=== PATIENT | female | born 1930 | race Caucasian/White ===

== ENCOUNTER 2017-12-25 13:13 | Day surgery (SDC) | payer OTHER, MEDICARE ==
--- NOTE | ~2017-12-25 | O ---
[facility] [place] [address] OPERATIVE REPORT Name: DAYNE DUDLEY Room #: 150-4 [facility] M.R.#: [id number] Admission: 12/25/17 Attend Phys: Nereida Guerra, Discharge: Date of : [birth year] Report #: [id number] THIS REPORT FOR: //name// CC: RAZIA MANUEL Physician staff Nereida Guerra DATE OF SERVICE: 12/25/2017 PREOPERATIVE DIAGNOSIS: Right index finger dorsal metacarpophalangeal joint dislocation, complex. POSTOPERATIVE DIAGNOSIS: Right index finger dorsal metacarpophalangeal joint dislocation, complex. PROCEDURE PERFORMED: Right index finger open reduction of metacarpophalangeal joint dislocation. SURGEON: Nereida Guerra MD ANESTHESIA: General mask anesthesia. ESTIMATED BLOOD LOSS: 1 mL. TOURNIQUET TIME: 13 minutes. COMPLICATIONS: None. CONDITION: Stable. DISPOSITION: Recovery room. INDICATIONS: The patient is an 87-year-old female with the above-mentioned diagnosis. She elects for operative treatment. The risks, benefits and alternatives of complications were discussed and included but were not limited to infection, damage to vessels or nerves, incomplete relief of her symptoms, and stiffness. Informed consent was obtained. The correct extremity was identified and labeled by myself. After verbal confirmation of patient as well as visual confirmation, a signed informed consent was obtained. DESCRIPTION OF PROCEDURE: The patient was brought back to the operative room, placed on the operating table in supine position. She received preoperative antibiotics. Tourniquet was placed over padding on the patient's right upper extremity. The right extremity was sterilely prepped and draped in usual fashion. Final timeout was taken to verify correct patient, operative [address] [address] OPERATIVE REPORT Name: DAYNE DUDLEY Room #: 150-4 [facility] M.R.#: [id number] Admission: 12/25/17 Attend Phys: Nereida Guerra, Discharge: Date of : [birth year] Report #: [id number] procedure, operative site, all concurred. The arm was elevated, exsanguinated, tourniquet inflated. Next, a closed reduction maneuver was attempted. I was unable to reduce the fracture and so then an oblique incision measuring approximately 1.5 cm was made from the proximal digital flexion crease to the proximal palmar crease. Dissection was carried down through subcutaneous tissue with tenotomy scissors. The radial digital nerve was directly beneath the skin, it was in excellent condition. Next, the A1 ramakrishna was easily identified. It was incised and then the joint was reduced after extricating the volar plate. The finger was taken through a range of motion, was felt to be very stable. It did not sublux. There was no significant instability noted. The wound was thoroughly irrigated. The skin was closed with 4-0 nylon suture. Wound was dressed with Adaptic and sterile gauze after infiltrating the subcutaneous tissue with approximately 2 mL of 0.25% Marcaine and she was placed in a bulky dressing and a volar and dorsal slab splint with the MP joint in approximately 30 degrees of flexion. All fingers were pink with brisk capillary refill. At the conclusion of the case and after deflation of the tourniquet, all sponge and needle counts were correct. The patient was transferred to postoperative recovery room in stable condition. By: [id number] Nereida Guerra MD /nt
== END 2017-12-25 17:20 | disposition home or self-care (01) ==
LOC: OR 13:13 → TBA 13:13 → OR 17:20
DX: S63.260A Dislocation of metacarpophalangeal joint of right index finger, initial encounter (principal); I10 Essential (primary) hypertension; M19.90 Unspecified osteoarthritis, unspecified site; I25.2 Old myocardial infarction; Z87.440 Personal history of urinary (tract) infections; Z79.899 Other long term (current) drug therapy; Z88.2 Allergy status to sulfonamides; X58.XXXA Exposure to other specified factors, initial encounter; Y93.9 Activity, unspecified; Y92.89 Other specified places as the place of occurrence of the external cause; Y99.9 Unspecified external cause status
CPT/HCPCS: 50010; 50101; 50386; 56526; 57006; 57091; 62110; 62900; 70005